=== PATIENT | male | born 1970 | race Hispanic/Latino ===

== ENCOUNTER 2025-07-10 11:42 | Emergency (ER) | payer OTHER, SELFPAY ==
[2025-07-10] MEDS ORDERED: VANCOMYCIN 1.75 GM/350 ML Premix BAG IVPB SCH (13:15)
[2025-07-10] MEDS ORDERED: Acetaminophen 500 MG TAB ONE (13:42)
[2025-07-10 13:53] LABS: #Basophils 0.07 10x3/uL (0.0-0.2); #Eosinophils 0.12 10x3/uL (0.0-0.7); #Monocytes 0.70 10x3/uL (0.11-0.59); #Neutrophils 9.87 10x3/uL (1.40-6.50); %Basophils 0.5 % (0.0-1.0); %Eosinophils 0.9 % (0.0-10.0); %Lymphocytes 17.5 % (21.0-51.0); %Monocytes 5.2 % (0.0-10.0); %Neutrophils 73.4 % (42.0-75.0); Hematocrit 37.4 % (42.0-52.0); Hemoglobin 11.8 g/dL (14.0-18.0); Mean Corpuscular Hemoglobin 28.9 pg (27.0-31.0); Mean Corpuscular Volume 91.7 fL (78.0-98.0); Platelet Count 474 10x3/uL (130-400); Red Blood Cell (RBC) Count 4.08 mill/uL (4.70-6.10); White Blood Cell (WBC) Count 13.45 10x3/uL (4.8-10.8)
[2025-07-10 14:14] LABS: ALT (SGPT) 8 U/L (Less than 45); AST (SGOT) 25 U/L (11-34); Albumin 3.1 g/dL (3.1-4.5); Alkaline Phosphatase 72 U/L (40-110); Anion Gap 13 mmol/L (10-20); BUN (Urea Nitrogen) 11 mg/dL (8.4-25.7); Bilirubin, Total 0.3 mg/dL (0.3-1.2); Calc. Creatinine Clearance 0 mL/min (70-130); Calcium 9.7 mg/dL (7.8-10.44); Carbon Dioxide 25 mmol/L (22-29); Chloride 104 mmol/L (98-107); Globulin 5.0 g/dL (2.4-3.5); Glucose 87 mg/dL (70-105); Potassium 3.9 mmol/L (3.5-5.1); Sodium 138 mmol/L (136-145)
[2025-07-10 14:30] LABS: Bacteria/HPF None Seen HPF (None Seen); CAUTI Indications for Culture Fever or rigors; Glucose, Urine (Dipstick) Normal (Negative); Leukocyte Negative Leu/uL (Negative); Protein, Urine (Dipstick) Negative (Neg-Trace); RBC/HPF 0-3 HPF (0-3); Specific Gravity, Urine 1.013 (1.002-1.036); WBC/HPF 0-3 HPF (0-3)
[2025-07-10 14:46] LABS: Urine Culture Reflex No No
== END 2025-07-10 16:00 ==
LOC: ERS 11:42
DX: L03.116 Cellulitis of left lower limb (principal); K21.9 Gastro-esophageal reflux disease without esophagitis; Z79.899 Other long term (current) drug therapy
CPT/HCPCS: 80053; 81001; 83605; 85025; 87040; 87086; 96365; 96366; J3375